=== PATIENT | male | born 1950 | race African-American/Black ===

== ENCOUNTER 2018-01-31 18:43 | Emergency (ER) | payer MEDICARE, OTHER ==
[~2018-01-31] VITALS: Ht 175.3 cm; Wt 205.0 kg
[~2018-01-31 18:43] MED LIST: ASPI-1079 PO; ATOR10TA PO; CARVEDILOL; COR6 PO; FURO-151 PO; PROMETHAZINE; SIMV20TA6 PO; TYLENOL WITH CODEINE
[2018-01-31] MEDS ORDERED: HYDROCODONE/ACETAMINOPHEN 5/325MG TABLET PO ONE (19:15)
[2018-01-31] MEDS ORDERED: IBUPROFEN 800MG TABLET PO ONE (19:15)
[2018-01-31] MEDS ORDERED: ACETAMINOPHEN 325MG TABLET PO ONE (19:15)
[2018-01-31] MEDS ORDERED: ONDANSETRON 4MG ODT PO ONE (19:15)
[2018-01-31 21:48] VITALS: BP 115/69
== END 2018-01-31 22:59 | disposition home or self-care (01) ==
LOC: ER 18:53
DX: M54.5 Low back pain (principal); I10 Essential (primary) hypertension; E78.5 Hyperlipidemia, unspecified; F17.200 Nicotine dependence, unspecified, uncomplicated; Z98.890 Other specified postprocedural states; Z79.82 Long term (current) use of aspirin; Z79.899 Other long term (current) drug therapy
CPT/HCPCS: 72128; 72131; 99284